=== PATIENT | female | born 2000 | race Caucasian/White ===

== ENCOUNTER 2019-05-13 19:36 | Emergency (ER) | payer OTHER ==
[~2019-05-13] VITALS: Ht 160 cm; Wt 59.0 kg
[2019-05-13 20:26] LABS: BILIRUBIN,URINE NEGATIVE (NEG); CLARITY,URINE CLEAR; COLOR,URINE YELLOW; NITRITE,URINE NEGATIVE (NEG); PROTEIN,URINE NEGATIVE (NEG-TRACE)
[2019-05-13 20:36] LABS: BACTERIA,URINE MODERATE /HPF (0-FEW); RBC,URINE 0 /HPF (0-2); SQUAMOUS EPITHELIAL CELL,UR MANY /LPF
[2019-05-13] MEDS ORDERED: ONDANSETRON PF 4 MG/2 ML VIAL. IV ONE (21:30)
[2019-05-13] MEDS ORDERED: IV NORMAL SALINE 1000ML BAG 1,000 ML IV ONE (21:30)
[2019-05-13] MEDS ORDERED: METR500T PO (21:52)
--- NOTE | 2019-05-13 21:52 | PHYS DOC ---
Past Medical History Past Medical History: No Pertinent History (ANA MARIA SABILLON APRN) Past Surgical History: No Surgical History (ANA MARIA SABILLON APRN) Alcohol Use: None Drug Use: None (ANA MARIA SABILLON APRN) Adult General Chief Complaint Chief Complaint: ABDOMINAL PAIN HPI HPI Patient is a 18 year old female who presents to the emergency department with complaints of lower abdominal pain that she describes as cramping. Patient currently rates the pain as 3 out of 10 on the pain scale, she denies any alleviating or exacerbating factors. She reports nausea and increased vaginal discharge similar to discharge experienced when she has had bacterial vaginosis in the past. Patient denies any fever, cough, sore throat, increased urinary frequency, dysuria, hematuria, burning, or diarrhea. She denies any concerns of however she had her IUD removed 2 months ago and is not using any protection and not taking any contraceptives. Patient reports her last menstrual cycle was on May 01, 2019. All other ROS is neg unless otherwise noted in HPI. (ANA MARIA SABILLON APRN) Review of Systems Review of Systems See Above (ANA MARIA SABILLON APRN) Current Medications Current Medications Current Medications Medications (Trade) Dose Ordered Sig/Nannette Start Time Stop Time Status Last Admin Dose Admin Ondansetron HCl (Zofran) 4 mg 1X ONCE 05/13/19 21:30 05/13/19 21:31 DC 05/13/19 21:23 4 MG Sodium Chloride 1,000 ml @ 1,000 mls/hr 1X ONCE 05/13/19 21:30 05/13/19 22:20 DC 05/13/19 21:24 1,000 MLS/HR (ROBERT OHARA MD) Allergies Allergies Allergies Coded Allergies Type Severity Reaction Last Updated Verified No Known Drug Allergies 05/13/19 No (ROBERT OHARA MD) Physical Exam Physical Exam See Above Constitutional: Well developed, well nourished, no acute distress, non-toxic appearance. [] HENT: Normocephalic, atraumatic, bilateral external ears normal, nose normal. [] Eyes: PERRLA, EOMI, conjunctiva normal, no discharge. [] Neck: Normal range of motion, no stridor. [] Cardiovascular:Heart rate regular rhythm Lungs & Thorax: Respirations even and unlabored, no retractions, no respiratory distress Pelvic Exam: Sedimentationist present Candy ERT Abdomen: Nontender, soft External Genitalia: Normal Skin Speculum: Normal vaginal mucosa, normal cervical discharge Bimanual: No adnexal masses or tenderness, No CMT Skin: Warm, dry, no erythema, no rash. [] Back: No CVA tenderness. [] Extremities: No cyanosis, ROM intact, no edema. [] Neurologic: Alert and oriented X 3, no focal deficits noted. [] Psychologic: Affect normal, judgement normal, mood normal. [] (ANA MARIA SABILLON APRN) Current Patient Data Vital Signs Vital Signs Date Time Temp Pulse Resp B/P (MAP) Pulse Ox O2 Delivery O2 Flow Rate FiO2 05/13/19 22:08 78 14 124/68 (86) 100 Room Air 05/13/19 20:05 97.6 97.6 (ROBERT OHARA MD) Lab Values Laboratory Tests Test 05/13/19 20:08 Urine Collection Type Unknown Urine Color Yellow Urine Clarity Clear Urine pH 6.0 Urine Specific [place] 1.025 Urine Protein Negative mg/dL (NEG-TRACE) Urine Glucose (UA) Negative mg/dL (NEG) Urine Ketones (Stick) Negative mg/dL (NEG) Urine Blood Negative (NEG) Urine Nitrite Negative (NEG) Urine Bilirubin Negative (NEG) Urine Urobilinogen Dipstick 1.0 mg/dL (0.2 mg/dL) Urine Leukocyte Esterase Negative (NEG) Urine RBC 0 /HPF (0-2) Urine WBC 1-4 /HPF (0-4) Urine Squamous Epithelial Cells Many /LPF Urine Bacteria Moderate /HPF (0-FEW) Urine Mucus Marked /LPF Urine Test Negative (NEG) Microbiology 05/13/19 Wet Prep - Final, Complete (ROBERT OHARA MD) EKG EKG [] (ANA MARIA SABILLON APRN) Radiology/Procedures Radiology/Procedures [] (ANA MARIA SABILLON APRN) Course & Med Decision Making Course & Med Decision Making Pertinent Labs and Imaging studies reviewed. (See chart for details) [] (ANA MARIA SABILLON APRN) Course & Med Decision Making Staff Physician Addendum: I was working in the ER during the course of this patient's visit. I was available for consultation as needed, but I was not directly involved in the care of this patient. (ROBERT OHARA MD) Dragon Disclaimer Dragon Disclaimer This electronic medical record was generated, in whole or in part, using a voice recognition dictation system. (ANA MARIA SABILLON APRN) Departure Departure Impression: Primary Impression: Bacterial vaginosis Disposition: HOME, SELF-CARE Condition: STABLE Referrals: UNKNOWN PCP NAME (PCP) Patient Instructions: Bacterial Vaginosis, [id number] Additional Instructions: Fill the prescription and use as directed. Follow-up with your PHARMACEUTICAL SALES REPRESENTATIVE if symptoms persist, return to the ER symptoms worsen. Scripts Metronidazole (FLAGYL) 500 Mg Tablet 1 TAB PO BID, #14 TAB 0 Refills Prov: ANA MARIA SABILLON APRN 05/13/19 ANA MARIA SABILLON APRN May 13, 2019 21:52 ROBERT OHARA MD May 13, 2019 22:41
[2019-05-13 22:00] LABS: U PREG PATIENT NEGATIVE (NEG)
[2019-05-13 22:08] VITALS: BP 124/68
== END 2019-05-13 22:14 | disposition home or self-care (01) ==
LOC: ER 19:36
DX: N76.0 Acute vaginitis (principal); B96.89 Other specified bacterial agents as the cause of diseases classified elsewhere
CPT/HCPCS: 81001; 81025; 87086; 96374; 99284; J2405; J7030; Q0111

== ENCOUNTER 2019-12-26 21:06 | Observation (INO) | payer OTHER ==
[~2019-12-26 21:06] MED LIST: METR500T PO
[2019-12-26] MEDS ORDERED: ACETAMINOPHEN 325 MG TABLET. PO PRN (21:15)
[2019-12-26] MEDS ORDERED: MAG HYDROX/ALUMINUM HYD/SIMETH 30 ML ORAL.SUSP PO PRN (21:15)
[2019-12-26] MEDS ORDERED: IV RINGERS,LACTATED 1000ML 1,000 ML IV PRN (21:30)
[2019-12-26 21:40] LABS: BILIRUBIN,URINE NEGATIVE (NEG); CLARITY,URINE CLEAR; COLOR,URINE YELLOW; NITRITE,URINE NEGATIVE (NEG); PH,URINE 6.5 (<5.0-8.0); PROTEIN,URINE NEGATIVE (NEG-TRACE)
[2019-12-26 21:47] LABS: BARBITURATES NEG (NEG); BENZODIAZEPINES NEG (NEG); CANNABINOIDS NEG (NEG); COCAINE NEG (NEG); METHADONE NEG (NEG); OPIATES NEG (NEG); PHENCYCLIDINE NEG (NEG)
[2019-12-26 21:48] LABS: AMPHETAMINE/METHAMPHETAMINE NEG (NEG)
[2019-12-26 21:52] LABS: SQUAMOUS EPITHELIAL CELL,UR MANY /LPF
[2019-12-26 21:53] LABS: BACTERIA,URINE MODERATE /HPF (0-FEW); RBC,URINE 0 /HPF (0-2); WBC,URINE 20-40 /HPF (0-4)
[2019-12-27] MEDS ORDERED: TERBUTALINE 1 MG/ML VIAL. SQ ONE (00:15)
[2019-12-27] MEDS ORDERED: diphenhydrAMINE HCL 25 MG CAPSULE PO PRN (00:15)
[2019-12-27 00:33] VITALS: BP 121/72
--- NOTE | 2019-12-27 01:36 | RAD ---
Examination: Obstetric ultrasound limited HISTORY: History of 34 gestation, in labor COMPARISON: None available FINDINGS: The placenta is in anterior wall. Placental grade is grade one.Single living intrauterine identified with heart rate of 150 beats per minute. cardiac activity is seen. Cord insertion, fluid distended bladder, stomach, kidneys are seen. position is cephalic Amniotic fluid index measures 9.7 cm. Biparietal diameter 8.9 cm corresponding to 36 weeks and 1 day. Head circumference 32 cm corresponding to 36 weeks and 1 day. Abdominal Circumference 31.3 cm corresponding to 35 weeks and 2 days. Femur length 6.9 cm corresponding to 34 weeks and 3 days. Head circumference to abdominal circumference ratio 1.0. Estimated weight 2699 g. LMP 04/27/2019 Clinical history 34 weeks and 5 days with estimated date of delivery 02/01/2020. Ultrasound age is 35 weeks and 5 days with estimated date of delivery by ultrasound 01/25/2020. IMPRESSION: Single living intrauterine with heart rate of 150 bpm. Electronically signed by: Javid Cedillo MD (12/27/2019 1:33 AM) [id number]
== END 2019-12-27 08:28 | disposition home or self-care (01) ==
LOC: 3 SO LND 21:06
PROVIDERS: ADMIT Obstetrics & Gynecology; ATTEND Obstetrics & Gynecology
DX: O26.893 Other specified pregnancy related conditions, third trimester (principal); R10.9 Unspecified abdominal pain; Z3A.34 34 weeks gestation of pregnancy; Z79.899 Other long term (current) drug therapy
CPT/HCPCS: 76815; 80307; 81001; 87086; 96372; G0378; G0379; J3105; J7120; Q0163

== ENCOUNTER 2021-04-21 13:44 | Emergency (ER) | payer OTHER ==
[~2021-04-21] VITALS: Ht 160 cm; Wt 71.2 kg
[2021-04-21] MEDS ORDERED: ONDA4TAB12 PO (16:53)
--- NOTE | 2021-04-21 16:54 | ED.ADGEN ---
Past Medical History Past Medical History: No Pertinent History Past Surgical History: Other Additional Past Surgical Histo: wisdom teeth extraction Smoking Status: Never Smoker Alcohol Use: Occasionally Drug Use: None General Adult EDM: Chief Complaint: HEAD INJURY/TRAUMA HPI: HPI: Patient is a 20 year old female coming in for headache. Patient accidentally hit her head while closing the truck of her jeep. Patient states she had no loss of consciousness and did not feel that bad initially. The next day she has been having headaches, fatigue, and nausea, and difficulty concentrating. 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 Denies any vomiting, vision changes, difficulty walking. Review of Systems: Review of Systems: All other systems within normal limits except for as noted in the HPI Allergies: Allergies: Allergies Coded Allergies Type Severity Reaction Last Updated Verified No Known Drug Allergies 04/21/21 No Physical Exam: PE: Constitutional: Well developed, well nourished, no acute distress, non-toxic appearance. [] HENT: Normocephalic, small less than quarter size hematoma on left upper scalp. No bogginess, crepitus, step-off or deformity. No scott signs., bilateral external ears normal, nose normal. [] Eyes: PERRLA, conjunctiva normal, no discharge. [] Neck: No rigidity, supple, no stridor. No C-spine [] Cardiovascular: Regular rate and rhythm, brisk cap refill [] Lungs & Thorax: Non labored symmetric respirations, no tachypnea or respiratory distress [] Abdomen: Soft, nondistended. Skin: Warm, dry, no erythema, no rash. [] Back: Unremarkable Extremities: No deformities, range of motion grossly intact, no lower extremity edema [] Neurologic: Alert and oriented X 3, no focal deficits noted. [] Psychologic: Affect normal, judgement normal, mood normal. [] Current Patient Data: Vital Signs: Vital Signs Date Time Temp Pulse Resp B/P (MAP) Pulse Ox O2 Delivery O2 Flow Rate FiO2 04/21/21 14:30 99.2 78 16 116/65 (82) 100 Room Air 99.2 EKG: EKG: [] Heart Score: C/O Chest Pain: No Risk Factors: Risk Factors: DM, Current or recent (<one month) smoker, HTN, HLP, family history of CAD, obesity. Risk Scores: Score 0 - 3: 2.5% MACE over next 6 weeks - Discharge Home Score 4 - 6: 20.3% MACE over next 6 weeks - Admit for Clinical Observation Score 7 - 10: 72.7% MACE over next 6 weeks - Early Invasive Strategies Radiology/Procedures: Radiology/Procedures: [] Course & Med Decision Making: Course & Med Decision Making Nonfocal neuro exam. Patient alert and oriented with small hematoma. Discussed treatment for concussion and return precautions. Dragon Disclaimer: Patrick Disclaimer: This electronic medical record was generated, in whole or in part, using a voice recognition dictation system. Departure Departure Impression: Primary Impression: Concussion Disposition: 01 HOME / SELF CARE / HOMELESS Condition: STABLE Referrals: UNKNOWN PCP NAME (PCP) Patient Instructions: Concussion-SportsMed Scripts Ondansetron (ONDANSETRON ODT) 4 Mg Tab.rapdis 1 TAB PO PRN Q6-8HRS PRN for NAUSEA, #16 TAB Prov: GENO MILLER MD 04/21/21 GENO MILLER MD Apr 21, 2021 16:54
[2021-04-21 17:08] VITALS: BP 127/76
== END 2021-04-21 17:08 | disposition home or self-care (01) ==
LOC: ER 13:44
DX: S06.0X0A Concussion without loss of consciousness, initial encounter (principal); R53.83 Other fatigue; R11.0 Nausea; W22.8XXA Striking against or struck by other objects, initial encounter; Y93.89 Activity, other specified; Y92.89 Other specified places as the place of occurrence of the external cause; Y99.8 Other external cause status
CPT/HCPCS: 99283